=== PATIENT | male | born 1975 | race Two or more races ===

== ENCOUNTER 2021-07-24 08:00 | Outpatient (CLI) | payer OTHER | END 2021-07-24 08:15 | disposition home or self-care (01) | LOC: PPH VACUNA 08:00 | PROVIDERS: ATTEND Emergency Medicine Pediatric Emergency Medicine | DX: Z23 Encounter for immunization (principal) ==

== ENCOUNTER 2021-08-26 14:28 | Outpatient (CLI) | payer OTHER | END 2021-08-26 14:31 | disposition home or self-care (01) | LOC: LAB 14:28 | PROVIDERS: ATTEND Obstetrics & Gynecology | DX: Z20.818 Contact with and (suspected) exposure to other bacterial communicable diseases (principal); Z20.828 Contact with and (suspected) exposure to other viral communicable diseases ==

== ENCOUNTER 2022-03-16 21:08 | Emergency (ER) | payer OTHER ==
[~2022-03-16] VITALS: Ht 172.7 cm; Wt 113.4 kg
[2022-03-16] MEDS ORDERED: ROSUVASTATIN CA20 MG (21:40)
[2022-03-16] MEDS ORDERED: METOPROLOL SUC100 MG (21:40)
[2022-03-16] MEDS ORDERED: LOSARTAN-HCTZ1 EAC1 (21:40)
[2022-03-16] MEDS ORDERED: VALSARTAN-HCTZ1 EAC3 (21:40)
[2022-03-16] MEDS ORDERED: PANTOPRAZOLE SO40 MG (21:41)
[2022-03-16] MEDS ORDERED: OZEMPIC1 MG/0.71 (21:41)
[2022-03-17] MEDS ORDERED: ALBUTEROL2.5 MG/3 M IH (02:58)
[2022-03-17] MEDS ORDERED: ZYNCOF 20-400120 ML PO (02:58)
== END 2022-03-17 03:31 ==
LOC: ER 21:08
DX: B34.9 Viral infection, unspecified (principal); R51.9 Headache, unspecified; Z20.822 Contact with and (suspected) exposure to COVID-19; E11.9 Type 2 diabetes mellitus without complications; Z79.84 Long term (current) use of oral hypoglycemic drugs; I10 Essential (primary) hypertension